=== PATIENT | male | born 1985 | race Two or more races ===

== ENCOUNTER 2019-02-19 19:44 | Emergency (ER) | payer BC ==
[2019-02-19 19:56] VITALS: BP 145/82
[2019-02-19] MEDS ORDERED: LIDOCAINE 5% (700 MG) TRANSDERMAL ADH..PATCH TP ONE (20:14)
[2019-02-19] MEDS ORDERED: IBUPROFEN 800 MG TABLET PO ONE (20:14)
--- NOTE | 2019-02-19 20:16 | ER Document Report ---
ED Medical Screen (RME) - General Stated Complaint: CHEST PAIN/BACK PAIN Time Seen by Provider: 02/19/19 20:09 Mode of Arrival: Ambulatory Information source: Patient Notes: This 34-year-old male presents emergency department with complaints of trapezius back pain. Reports pain started on Wednesday. He took Advil and muscle relaxer yesterday with no relief of the pain. Denies trauma. Denies new exercise. Denies fever vomiting diarrhea reports he thinks he had a loose stool. Denies past medical history of anything. Patient left side upper back very tender to palpate no erythema no swelling no warmth. Patient complains of pain with palpation and pain when he sits back. No pain with movement of his left arm. I have greeted and performed a rapid initial assessment of this patient. A comprehensive ED assessment and evaluation of the patient, analysis of test results and completion of the medical decision making process will be conducted by additional ED providers. Dictation of this chart was performed using voice recognition software; therefore, there may be some unintended grammatical errors. Physical Exam - Vital signs Vitals: Temp Pulse Resp BP Pulse Ox 98.3 F 87 18 145/82 H 100 02/19/19 19:55 02/19/19 19:55 02/19/19 19:55 02/19/19 19:55 02/19/19 19:55 Course - Vital Signs Vital signs: Temp Pulse Resp BP Pulse Ox 98.3 F 87 18 145/82 H 100 02/19/19 19:55 02/19/19 19:55 02/19/19 19:55 02/19/19 19:55 02/19/19 19:55
--- NOTE | 2019-02-19 20:27 | ER Document Report ---
HPI - HPI Time Seen by Provider: 02/19/19 20:09 Pain Level: 5 Context: This 34-year-old male presents to the emergency department with complaints of left-sided upper back pain. Reports that just started Wednesday. Denies trauma. Reports pain with massage. Took a muscle relaxer and Advil yesterday without relief of symptoms. Denies fever vomiting diarrhea. Denies pain with void. Denies flank pain. Patient requesting work note. Associated Symptoms: None Exacerbated by: Movement, Other - leaning back against the seat Relieved by: Denies Similar symptoms previously: No Recently seen / treated by doctor: No Past Medical History - General Information source: Patient - Social History Smoking Status: Never Smoker Chew tobacco use (# tins/day): No Frequency of alcohol use: Rare Drug Abuse: None Lives with: Family Family History: None Patient has suicidal ideation: No Patient has homicidal ideation: No - Medical History Medical History: Negative Surgical Hx: Negative Vertical Provider Document - CONSTITUTIONAL Agree With Documented VS: Yes Exam Limitations: No Limitations General Appearance: WD/WN, No Apparent Distress - HEENT HEENT: Atraumatic, Normocephalic - NECK Neck: Normal Inspection, Supple. negative: Lymphadenopathy-Left, Lymphadenopathy-Right - RESPIRATORY Respiratory: Breath Sounds Normal, No Respiratory Distress, Chest Non-Tender - CARDIOVASCULAR Cardiovascular: Regular Rate, Regular Rhythm - GI/ABDOMEN Gastrointestinal: Abdomen Soft, Abdomen Non-Tender - BACK Back: Normal Inspection - No obvious deformity good distal movement and sensation no shoulder pain. Good radial pulse cap refill less than 3 seconds. Patient is tender to trapezius area. No rash. - MUSCULOSKELETAL/EXTREMETIES Musculoskeletal/Extremeties: MAEW, FROM, Non-Tender - NEURO Level of Consciousness: Awake, Alert, Appropriate Motor/Sensory: No Motor Deficit - DERM Integumentary: Warm, Dry Adult Front & Back Diagram: 1 - Patient reports area tender to palpate no erythema no swelling no warmth no vesicles Course - Re-evaluation Re-evalutation: 02/19/19 20:29 34-year-old male presents emergency department with complaints of upper back pain denies recent injury. No rash. Patient was instructed on muscle relaxers and Motrin. Also applied a Lidoderm patch for patient comfort. He was instructed to follow-up with his primary care tomorrow for recheck he verbalized understand all instructions. Dictation of this chart was performed using voice recognition software; therefore, there may be some unintended grammatical errors. - Vital Signs Vital signs: Temp Pulse Resp BP Pulse Ox 98.3 F 87 18 145/82 H 100 02/19/19 19:55 02/19/19 19:55 02/19/19 19:55 02/19/19 19:55 02/19/19 19:55 Discharge - Discharge Clinical Impression: Upper back pain on left side Condition: Stable Disposition: HOME, SELF-CARE Instructions: Ice Packs ([facility]), Use of [id number] Ibuprofen ([facility]), Muscle Relaxers ([facility]), Upper Back Strain ([facility]) Additional Instructions: *You have been evaluated for upperback pain *Take medication as prescribed, take ibuprofen as indicated, apply Lidoderm patch daily *Rest/Ice packs as indicated *Follow up with a primary care provider this week *Return to ED for worsening condition, changes, needs Monitor your blood pressure. Your blood pressure was elevated today. This may be because you were anxious, in pain or because you need medication. It is impo rtant to follow up with your primary care provider for full evaluation. Prescriptions: Cyclobenzaprine HCl [Flexeril 5 mg Tablet] 5 mg PO TID #15 tablet Lidocaine [Lidoderm 5% (700 mg) Transdermal Patch] 1 patch TP DAILY #30 adh..patch Forms: Return to Work, Elevated Blood Pressure
--- NOTE | 2019-02-20 07:26 | EKG REPORT ---
SEVERITY:- NORMAL ECG - SINUS RHYTHM : Confirmed by: Bereket Chen MD 20-Feb-2019 07:25:21
== END 2019-02-19 20:29 | disposition home or self-care (01) ==
LOC: ER 19:44
DX: M54.6 Pain in thoracic spine (principal)
CPT/HCPCS: 93005; 93010; 99283